=== PATIENT | male | born 1955 | race Caucasian/White ===

== ENCOUNTER 2018-05-16 00:39 | Inpatient (IN) ==
[2018-05-16] MEDS ORDERED: Temazepam 15 MG Capsule PO PRN (02:33)
[2018-05-16] MEDS ORDERED: Acetaminophen 325 MG Tablet PO PRN (02:33)
[2018-05-16] MEDS ORDERED: Bisacodyl 10 MG Supp RECTAL PRN (02:33)
[2018-05-16] MEDS ORDERED: Morphine Inj 4 MG/ML Vial IV.PUSH PRN (02:35)
[2018-05-16] MEDS ORDERED: Sod Chloride 0.9% Inj 1,000 ML IV.CONT SCH (02:45)
[2018-05-16 08:42] LABS: Baso % (Auto) 0.4 % (0.0-2.0); Eos # (Auto) 0.3 th/mm3 (0.0-0.4); Eos % (Auto) 4.6 % (0.0-4.0); Hematocrit 41.4 % (39.0-51.0); Hemoglobin 13.8 gm/dL (13.0-17.0); Lymph # (Auto) 1.6 th/mm3 (1.0-4.8); Lymph % (Auto) 21.7 % (9.0-44.0); Mean Corpuscular HGB Conc 33.4 % (32.0-36.0); Mean Corpuscular Hemoglobin 30.5 pg (27.0-34.0); Mean Corpuscular Volume 91.4 fL (80.0-100.0); Mean Platelet Volume 7.2 fL (7.0-11.0); Mono # (Auto) 0.6 th/mm3 (0.0-0.9); Mono % (Auto) 8.9 % (0.0-8.0); Neut # (Auto) 4.8 th/mm3 (1.8-7.7); Neut % (Auto) 64.4 % (16.0-70.0); Platelet Count 255 th/mm3 (150-450); Red Blood Count 4.53 mil/mm3 (4.50-5.90); Red Cell Distribution Width 11.9 % (11.6-17.2); White Blood Count 7.3 th/mm3 (4.0-11.0)
[2018-05-16 08:52] LABS: Chloride 107 meq/L (98-107); Potassium 4.6 meq/L (3.5-5.1); Sodium 139 meq/L (136-145)
[2018-05-16 08:56] LABS: Albumin 3.2 g/dL (3.4-5.0); Anion Gap 7 meq/L (5-15); Blood Urea Nitrogen 81 mg/dL (7-18); Carbon Dioxide 24.9 meq/L (21.0-32.0); Glucose,Random 122 mg/dL (74-106)
[2018-05-16 08:58] LABS: Alanine Aminotransferase 19 U/L (12-78)
[2018-05-16 08:59] LABS: Aspartate Aminotransferase 16 U/L (15-37); Glomerular Filtration Rate 7 mL/min (>89)
[2018-05-16 09:00] LABS: Total Protein 6.7 g/dL (6.4-8.2)
[2018-05-16 09:01] LABS: Alkaline Phosphatase 43 U/L (45-117)
[2018-05-16] MEDS: Piperacil/Tazo 2.25 GM Premix 50 ML IV.SIG SCH ×2 (09:38→15:58)
[2018-05-16] MEDS: Senna/Docusate Sodium 8.6/50 MG Tablet PO SCH (09:38)
[2018-05-16] MEDS ORDERED: Sod Chloride 0.9% Inj 1,000 ML IV.SIG ONE (09:47)
--- NOTE | 2018-05-16 09:59 | P.CONNP ---
<Loretta Zavala - Last Filed: 05/16/18 10:22> History of Present Illness Service: Nephrology Consult date: 05/16/18 Reason for Consult: Acute Renal Failure Primary Care Provider: ROZINA SIMMONS Chief Complaint: Back pain History of Present Illness: This is a 63 y/o male transferred from [facility] where he was admitted for back pain. The patient is in renal failure on admission with creatinine 8.3, BUN 80, K 5.1. His repeated labs do no show much improvement. I was able to call his PCP who reports in January his creatinine was 1, GFR 79. PMH includes HTN and hyperlipidemia. He was diagnosed with diverticulitis in the past week, has been on PO Cipro and Flagyl for 6 days. He is making urine, denies hematuria, hesitancy,or dribbling. The patient does report remote hx of "borderline" BPH, has not had to follow up with urology and has not been on any medications. On exam his bladder is not palpable. At the bedside, bladder scan revealing 390 ml, he voided 300 and post void scan showing 26 mls. He has taken a few NSAID tabs (Aleve and Advil)at home, but he reports less than 10 tabs in the past 2 weeks. He is also on lisinopril at home. Urinalysis here reveals RBCs and blood, no protein. He is afebrile without leukocytosis. We were consulted for renal management. On exam he is not in distress, and is a full code. He was given NS x 2 liters bolus and is on 100 ml/hr currently. He states he has felt "crappy" since but cannot articulate his complaints. Review of Systems All other systems reviewed negative except as stated in HPI Cardiovascular: Denies chest pain Respiratory: Denies shortness of breath Gastrointestinal: Reports abdominal pain, Reports constipation PMFSH - History History Provided By: Patient - Medical History Medical History: Medical History (Last Updated 05/16/18 @ 00:57 by Maxine Timmons RN) Diverticulitis - Tobacco History Second Hand Smoke Exposure: No Tobacco Use In Past 30 Days: No Smoking Status: Never smoker - Alcohol History How Often Do You Have a Drink Containing Alcohol: Never - Substance Use History Substance History: No History of Abuse - Travel History History of Recent Travel: No Recent Travel in the [place] Within the Last 8 Weeks: No Recent Travel Out of the Country Within the Last 8 Weeks: No Medications and Allergies Allergies Allergy/AdvReac Type Severity Reaction Status Date / Time prochlorperazine AdvReac Hallucinate Verified 05/16/18 00:54 [From Compazine] s Home Medications Medication Instructions Recorded Confirmed Type castor oil 1,300 mg MISCELLANEOUS DAILY 05/16/18 05/16/18 History ciprofloxacin HCl [Cipro] 500 mg PO Q12H 05/16/18 05/16/18 History gabapentin 600 mg PO TID 05/16/18 05/16/18 History lisinopril 20 mg PO DAILY 05/16/18 05/16/18 History lovastatin 40 mg PO DAILY 05/16/18 05/16/18 History metoprolol succinate 100 mg PO DAILY 05/16/18 05/16/18 History metronidazole [Flagyl] 500 mg PO TID 05/16/18 05/16/18 History polyethylene glycol 3350 [Miralax] 17 g PO DAILY 05/16/18 05/16/18 History rabeprazole [Aciphex] 20 mg PO DAILY 05/16/18 05/16/18 History tadalafil [Cialis] 2.5 mg PO DAILY 05/16/18 05/16/18 History Active Medications: Active Medications Acetaminophen (Tylenol) 650 mg PO Q4H PRN PRN Reason: Temp > 100.4 Al Hydroxide/Mg Hydroxide (Milk Of Magnesia Liq) 30 ml PO Q12H PRN PRN Reason: Mild Constipation Bisacodyl (Dulcolax Supp) 10 mg RECTAL DAILY PRN PRN Reason: SEVERE CONSITIPATION Piperacillin/Tazobactam/Dextrose (Zosyn 2.25 Gm Premix) 50 mls @ 100 mls/hr IV.SIG Q6H [facility] Last Admin: 05/16/18 09:38 Dose: 100 mls/hr Sodium Chloride (1/2 Normal Saline Inj) 1,000 mls @ 100 mls/hr IV.CONT .Q10H [facility] Lactulose (Lactulose Liq) 30 ml PO DAILY PRN PRN Reason: SEVERE CONSITIPATION Morphine Sulfate (Morphine Inj) 2 mg IV.PUSH Q4H PRN PRN Reason: PAIN 6-10 Ondansetron HCl (Zofran Inj) 4 mg IV.PUSH Q6H PRN PRN Reason: NAUSEA OR VOMITING Senna/Docusate Sodium (Yaa-Colace) 1 tab PO BID [facility] Last Admin: 05/16/18 09:38 Dose: 1 tab Sennosides (Senokot) 17.2 mg PO Q12H PRN PRN Reason: Moderate Constipation Temazepam (Restoril) 15 mg PO HS PRN PRN Reason: INSOMNIA Exam Vital signs: Vital Signs 05/16/18 04:00 05/16/18 08:00 Temperature 97.4 F L 96.3 F L Pulse Rate 63 54 L Respiratory Rate 18 20 Blood Pressure 165/88 H 177/63 H Pulse Oximetry 91 L 100 Intake & Output 05/15/18 05/16/18 05/16/18 18:59 06:59 18:59 Intake Total 200 / 200 Output Total 300 / 300 Balance 200 / 200 -300 / -300 Weight 108.8 kg Intake: Oral 200 / 200 Output: Urine 300 / 300 Other: # Voids 2 1 Date of Last Bowel Movement 05/14/18 Weight On Admission 108.8 kg - Constitutional no acute distress - Routine HEENT Exam Head: Present: normocephalic - Routine Neck Exam Present: supple, full ROM - Routine Respiratory Exam Present: CTA bilaterally. Absent: accessory muscle use - Routine Cardiovascular Exam Present: RRR, S1, S2 - Routine Abdominal Exam Present: soft, normoactive bowel sounds. Absent: tenderness, distended, guarding - Routine Extremities Exam Present: full ROM. Absent: edema - Routine Skin Exam Present: intact, warm - Routine Neurological Exam Present: alert, oriented X3 Results - Lab Results 05/16/18 08:35 05/16/18 08:35 Most recent lab results Calcium 8.0 mg/dL (8.5-10.1) L 05/16/18 08:35 - Image Kidney/bladder ultrasound: pending Assessment and Plan - Assessment (1) Acute renal failure Code(s): N17.9 - Acute kidney failure, unspecified Status: Acute Plan: Etiology is unclear. In January his creatinine was 1. DAVID may be due to allergic interstitial nephritis given recent antibiotic use. Bladder scan not suggesting obstruction. Renal US ordered to evaluate prostate. Repeat labs minimal improvement. Obtain CPK. Reduce IVF to 50 cc/hr. Monitor urine output. Avoid nephrotoxic agents. he was given Toradol on admission. Repeat labs daily. If no improvement, he may need dialysis support. Renal biopsy may also be required. Due to complexity of his case, would suggest transferring the patient to the main hospital. (2) HTN (hypertension) Code(s): I10 - Essential (primary) hypertension Status: Acute Plan: Resume home metoprolol. Hold NIXON inhibitor given renal failure. (3) Diverticulitis Code(s): K57.92 - Diverticulitis of intestine, part unspecified, without perforation or abscess without bleeding Status: Acute Plan: Was on PO Cipro and Flagyl. Ordered IV Zosyn here. Monitor symptom improvement. Imaging reviewed. <Scott Horne - Last Filed: 05/16/18 14:37> History of Present Illness Primary Care Provider: [facility] - Medical History Medical History: Medical History (Last Updated 05/16/18 @ 00:57 by Maxine Timmons RN) Diverticulitis Medications and Allergies Active Medications: Active Medications Acetaminophen (Tylenol) 650 mg PO Q4H PRN PRN Reason: Temp > 100.4 Al Hydroxide/Mg Hydroxide (Milk Of Magnesia Liq) 30 ml PO Q12H PRN PRN Reason: Mild Constipation Bisacodyl (Dulcolax Supp) 10 mg RECTAL DAILY PRN PRN Reason: SEVERE CONSITIPATION Piperacillin/Tazobactam/Dextrose (Zosyn 2.25 Gm Premix) 50 mls @ 100 mls/hr IV.SIG Q6H [facility] Last Infusion: 05/16/18 10:08 Dose: Infused Sodium Chloride (1/2 Normal Saline Inj) 1,000 mls @ 100 mls/hr IV.CONT .Q10H [facility] Last Admin: 05/16/18 13:54 Dose: 100 mls/hr Lactulose (Lactulose Liq) 30 ml PO DAILY PRN PRN Reason: SEVERE CONSITIPATION Morphine Sulfate (Morphine Inj) 2 mg IV.PUSH Q4H PRN PRN Reason: PAIN 6-10 Ondansetron HCl (Zofran Inj) 4 mg IV.PUSH Q6H PRN PRN Reason: NAUSEA OR VOMITING Senna/Docusate Sodium (Yaa-Colace) 1 tab PO BID [facility] Last Admin: 05/16/18 09:38 Dose: 1 tab Sennosides (Senokot) 17.2 mg PO Q12H PRN PRN Reason: Moderate Constipation Temazepam (Restoril) 15 mg PO HS PRN PRN Reason: INSOMNIA Exam Vital signs: Vital Signs 05/16/18 04:00 05/16/18 08:00 05/16/18 12:00 Temperature 97.4 F L 96.3 F L 96.2 F L Pulse Rate 63 54 L 55 L Respiratory Rate 18 20 20 Blood Pressure 165/88 H 177/63 H 137/75 Pulse Oximetry 91 L 100 100 Intake & Output 05/15/18 05/16/18 05/16/18 18:59 06:59 18:59 Intake Total 200 / 200 50 / 50 Output Total 500 / 500 Balance 200 / 200 -450 / -450 Weight 108.8 kg Intake: IV 50 / 50 Zosyn 2.25 GM Premix 50 ML @ 50 / 50 100 mls/hr IV.SIG Q6H [facility] Rx#: [id number] Oral 200 / 200 Output: Urine 500 / 500 Other: # Voids 2 1 Date of Last Bowel Movement 05/14/18 Weight On Admission 108.8 kg Results - Lab Results 05/16/18 08:35 05/16/18 08:35 Most recent lab results Calcium 8.0 mg/dL (8.5-10.1) L 05/16/18 08:35 Assessment and Plan - Assessment (1) Acute renal failure Code(s): N17.9 - Acute kidney failure, unspecified Status: Acute (2) HTN (hypertension) Code(s): I10 - Essential (primary) hypertension Status: Acute (3) Diverticulitis Code(s): K57.92 - Diverticulitis of intestine, part unspecified, without perforation or abscess without bleeding Status: Acute - Attending Attestation patient was seen and examined. Agree with above assessment and plan. He has hematuria. Rule out nephrolithiasis or other causes of obstruction. I will order CT of abdomen/pelvis, stone protocol. <Loretta Zavala - Last Filed: 05/16/18 10:22> (1) Acute renal failure Qualifiers: Acute renal failure type: unspecified Qualified Code(s): N17.9 - Acute kidney failure, unspecified <Scott Horne - Last Filed: 05/16/18 14:37> (1) Acute renal failure Qualifiers: Acute renal failure type: unspecified Qualified Code(s): N17.9 - Acute kidney failure, unspecified
[2018-05-16 10:42] LABS: Creatine Kinase MB 3.1 ng/mL (0.5-3.6)
--- NOTE | 2018-05-16 13:22 | P.HP ---
History of Present Illness Primary Care Physician: ROZINA SIMMONS Chief Complaint: Back pain History of Present Illness: 63-year-old male with known history of hypertension, hyperlipidemia, recurrent diverticulitis, erectile dysfunction who presented the hospital because of right-sided flank pain. Patient states that he has been going outpatient management for diverticulitis by his biomedical doctor for approximately 1 week. He states he started developing worsening back pain and flank pain in which he talked 1 of his friends and they thought that it might be related to a kidney stone so he came to the emergency department for evaluation. Patient had workup done and found to have acute renal failure with creatinine 8.3. Patient is still making urine. Potassium was normal. No abnormalities in electrolytes. CT scan was done of the abdomen did not indicate any obstructive uropathy. Does indicate a left kidney 4 cm cyst. No etiology for the patient's acute renal failure. He has been on recent antibiotics include Cipro, Flagyl for diverticulitis. Patient states that he has never had any problems with his kidneys before. He states that the only thing new that he is using last 2 weeks is a new [id number] medication that was being promoted by Dr. Beckham and Clarence Patricia for erectile dysfunction. 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 Denies any urinary symptoms. He has had flank pain. Denies any edema, shortness of breath, dyspnea, chest pain. - Diagnosis (1) Acute renal failure Inpatient Certification: I certify that the inpatient services were ordered in accordance with Medicare regulations governing the order. This includes certification that hospital inpatient services are reasonable and necessary and in the case of services not specified as inpatient-only under 42 CFR 419.22(n), that they are appropriately provided as inpatient services in accordance to with the 2-midnight benchmark under 43 CFR 412.3(e) Estimated Total Length of Stay (Days): 2 Plans for Post Hospital Care: Not yet determined Review of Systems All other systems reviewed negative except as stated in HPI Gastrointestinal: Reports abdominal pain PMFSH - History History Provided By: Patient - Medical History Medical History: Medical History (Last Updated 05/16/18 @ 13:29 by BHAVANA Salgado) Enlarged prostate Erectile dysfunction Hyperlipidemia Hypertension Diverticulitis - Surgical History Surgical History: Surgical History (Last Updated 05/16/18 @ 13:29 by BHAVANA Salgado) History of appendectomy History of back surgery History of shoulder surgery Status post wrist surgery - Family History Family History: Family History (Last Updated 05/16/18 @ 13:30 by BHAVANA Salgado) Father History of tuberculosis Mother No pertinent past medical history - Tobacco History Second Hand Smoke Exposure: No Tobacco Use In Past 30 Days: No Smoking Status: Never smoker - Alcohol History How Often Do You Have a Drink Containing Alcohol: Never - Substance Use History Substance History: No History of Abuse - Travel History History of Recent Travel: No Recent Travel in the [place] Within the Last 8 Weeks: No Recent Travel Out of the Country Within the Last 8 Weeks: No Medications and Allergies Active Medications: Active Medications Acetaminophen (Tylenol) 650 mg PO Q4H PRN PRN Reason: Temp > 100.4 Al Hydroxide/Mg Hydroxide (Milk Of Magnesia Liq) 30 ml PO Q12H PRN PRN Reason: Mild Constipation Bisacodyl (Dulcolax Supp) 10 mg RECTAL DAILY PRN PRN Reason: SEVERE CONSITIPATION Piperacillin/Tazobactam/Dextrose (Zosyn 2.25 Gm Premix) 50 mls @ 100 mls/hr IV.SIG Q6H [facility] Last Infusion: 05/16/18 10:08 Dose: Infused Sodium Chloride (1/2 Normal Saline Inj) 1,000 mls @ 100 mls/hr IV.CONT .Q10H [facility] Lactulose (Lactulose Liq) 30 ml PO DAILY PRN PRN Reason: SEVERE CONSITIPATION Morphine Sulfate (Morphine Inj) 2 mg IV.PUSH Q4H PRN PRN Reason: PAIN 6-10 Ondansetron HCl (Zofran Inj) 4 mg IV.PUSH Q6H PRN PRN Reason: NAUSEA OR VOMITING Senna/Docusate Sodium (Yaa-Colace) 1 tab PO BID [facility] Last Admin: 05/16/18 09:38 Dose: 1 tab Sennosides (Senokot) 17.2 mg PO Q12H PRN PRN Reason: Moderate Constipation Temazepam (Restoril) 15 mg PO HS PRN PRN Reason: INSOMNIA Allergies Allergy/AdvReac Type Severity Reaction Status Date / Time prochlorperazine AdvReac Hallucinate Verified 05/16/18 00:54 [From Compazine] s Home Medications Medication Instructions Recorded Confirmed Type castor oil 1,300 mg MISCELLANEOUS DAILY 05/16/18 05/16/18 History ciprofloxacin HCl [Cipro] 500 mg PO Q12H 05/16/18 05/16/18 History gabapentin 600 mg PO TID 05/16/18 05/16/18 History lisinopril 20 mg PO DAILY 05/16/18 05/16/18 History lovastatin 40 mg PO DAILY 05/16/18 05/16/18 History metoprolol succinate 100 mg PO DAILY 05/16/18 05/16/18 History metronidazole [Flagyl] 500 mg PO TID 05/16/18 05/16/18 History polyethylene glycol 3350 [Miralax] 17 g PO DAILY 05/16/18 05/16/18 History rabeprazole [Aciphex] 20 mg PO DAILY 05/16/18 05/16/18 History tadalafil [Cialis] 2.5 mg PO DAILY 05/16/18 05/16/18 History Exam Vital signs: Vital Signs 05/16/18 04:00 05/16/18 08:00 05/16/18 12:00 Temperature 97.4 F L 96.3 F L 96.2 F L Pulse Rate 63 54 L 55 L Respiratory Rate 18 20 20 Blood Pressure 165/88 H 177/63 H 137/75 Pulse Oximetry 91 L 100 100 Intake & Output 05/15/18 05/16/18 05/16/18 18:59 06:59 18:59 Intake Total 200 / 200 50 / 50 Output Total 300 / 300 Balance 200 / 200 -250 / -250 Weight 108.8 kg Intake: IV 50 / 50 Zosyn 2.25 GM Premix 50 ML @ 50 / 50 100 mls/hr IV.SIG Q6H [facility] Rx#: [id number] Oral 200 / 200 Output: Urine 300 / 300 Other: # Voids 2 1 Date of Last Bowel Movement 05/14/18 Weight On Admission 108.8 kg Narrative: GENERAL: Well-developed, well-nourished, in no acute distress. alert and orientated HEENT: Head is normocephalic without any lesions or masses noted. Facial features are symmetric. Eyes: Pupils equal round reactive to light. Extraocular muscles are intact. Conjunctivae were clear. Oropharyngeal: Pharynx without any erythema edema. Tongue is midline without deviation. Buccal mucosa is moist without any masses or lesions NECK: Supple without any masses. Trachea midline no deviation. No JVD, no bruits are appreciated CARDIAC: Regular rhythm, regular rate. S1/S2 are heard. No murmurs gallops or rubs. LUNGS: Clear to auscultation bilaterally. No wheeze, rhonchi or rales. No use of accessory muscles on inspiration or expiration. ABDOMEN: Soft, nontender. Nondistended. Bowel sounds heard in all 4 quadrants. No organomegaly or masses. Negative rebound, negative guarding EXTREMITIES: No edema, pulses are equal bilaterally. No cyanosis or clubbing NEUROLOGY: Mood and affect appear appropriate. Cranial nerves II through XII grossly intact. Muscle strength 5/5 in upper and lower extremities bilaterally. Deep tendon reflexes are 2+ in upper and lower extremities bilaterally. Results - Labs CBC & Chem 7: 05/16/18 08:35 05/16/18 08:35 Labs: Laboratory Results - last 24 hr 05/16/1818 05/16/18 08:35 08:35 08:35 CBC w Diff Auto diff final WBC 7.3 RBC 4.53 Hgb 13.8 Hct 41.4 MCV 91.4 D MCH 30.5 MCHC 33.4 RDW 11.9 Plt Count 255 MPV 7.2 Neut % (Auto) 64.4 Lymph % (Auto) 21.7 Cowley % (Auto) 8.9 H Eos % (Auto) 4.6 H Baso % (Auto) 0.4 Neut # (Auto) 4.8 Lymph # (Auto) 1.6 Cowley # (Auto) 0.6 Eos # (Auto) 0.3 Baso # (Auto) 0.0 WBC Differential . Differential Comment . Sodium 139 Potassium 4.6 Chloride 107 Carbon Dioxide 24.9 Anion Gap 7 BUN 81 H Creatinine 8.10 H Estimated GFR 7 L Random Glucose 122 H Calcium 8.0 L Total Bilirubin 0.4 AST 16 ALT 19 Alkaline Phosphatase 43 L Total Creatine Kinase 311 H CK-MB (CK-2) 3.1 CK-MB (CK-2) % 1.0 Total Protein 6.7 D Albumin 3.2 L Caprini VTE Risk Assessment Caprini VTE Risk Assessment: Moderate/High Risk (score >= 2) Caprini Risk Assessment Model: Point Value = 1 Point Value = 2 Point Value = 3 Point Value = 5 Age 41-60 Minor surgery BMI > 25 kg/m2 Swollen legs Varicose veins or History of unexplained or recurrent spontaneous Oral contraceptives or hormone replacement Sepsis (< 1 month) Serious lung disease, including pneumonia (< 1 month) Abnormal pulmonary function Acute myocardial infarction Congestive heart failure (< 1 month) History of inflammatory bowel disease Medical patient at bed rest Age 61-74 Arthroscopic surgery Major open surgery (> 45 min) Laparoscopic surgery (> 45 min) Malignancy Confined to bed (> 72 hours) Immobilizing plaster cast Central venous access Age >= 75 History of VTE Family history of VTE Factor V Leiden Prothrombin [id number] Lupus anticoagulant Anticardiolipin antibodies Elevated serum homocysteine Heparin-induced thrombocytopenia Other congenital or acquired thrombophilia Stroke (< 1 month) Elective arthroplasty Hip, pelvis, or leg fracture Acute spinal cord injury (< 1 month) Prophylaxis Regimen: Total Risk Factor Score Risk Level Prophylaxis Regimen 0-1 Low Early ambulation 2 Moderate Order ONE of the following: *Sequential Compression Device (SCD) *Heparin 5000 units SQ BID 3-4 Higher Order ONE of the following medications: *Heparin 5000 units SQ TID *Enoxaparin/Lovenox 40 mg SQ daily (WT < 150 kg, CrCl > 30 mL/min) *Enoxaparin/Lovenox 30 mg SQ daily (WT < 150 kg, CrCl > 10-29 mL/min) *Enoxaparin/Lovenox 30 mg SQ BID (WT < 150 kg, CrCl > 30 mL/min) AND/OR *Sequential Compression Device (SCD) 5 or more Highest Order ONE of the following medications: *Heparin 5000 units SQ TID (Preferred with Epidurals) *Enoxaparin/Lovenox 40 mg SQ daily (WT < 150 kg, CrCl > 30 mL/min) *Enoxaparin/Lovenox 30 mg SQ daily (WT < 150 kg, CrCl > 10-29 mL/min) *Enoxaparin/Lovenox 30 mg SQ BID (WT < 150 kg, CrCl > 30 mL/min) AND *Sequential Compression Device (SCD) Assessment and Plan - Assessment (1) Acute renal failure Code(s): N17.9 - Acute kidney failure, unspecified Status: Acute Plan: -Etiology unclear at this time for the acute renal failure. Fortunately patient is still making urine. No electrolyte abnormalities. No hyperkalemia. Could be secondary to medication, possible related to the recent erectile dysfunction supplement that he just started couple weeks ago. -CT scan does indicates a 4 cm cyst in the left kidney, however no other acute etiology -Patient continued on IV fluids without any significant improvement of his renal function -Nephrology consulted and made recommendations. They are indicating the patient will likely require a renal biopsy and possible hemodialysis. They requested that the patient be transferred to the main hospital for closer monitoring and procedures. -Awaiting renal bladder ultrasound -Further testing performed to include sed rate, C-reactive protein, STARLA, RA, C3 , C4, anti-ds, A1c, hepatitis panel, HIV, protein electrophoresis, 24-hour urine for protein, sodium, creatinine. - Plan DVT prevention -Sequential compression devices -Avoid chemical prophylaxis secondary to possible need for biopsy (1) Acute renal failure Qualifiers: Acute renal failure type: unspecified Qualified Code(s): N17.9 - Acute kidney failure, unspecified
[2018-05-16] MEDS: Sodium Chloride 0.45 % Inj 1,000 ML IV.CONT SCH (13:54)
--- NOTE | 2018-05-16 15:50 | US ---
EXAM DATE: 05/16/2018 10:44 AM EDT AGE/SEX: 63 years / Male INDICATIONS: Increased BUN/Creatinine. Left flank pain. CLINICAL DATA: This is the patient's initial encounter. Patient reports that signs and symptoms have been present for 2 days and indicates a pain score of 3/10. MEDICAL/SURGICAL HISTORY: Diverticulitis. Atherosclerosis. Left renal cyst. None. COMPARISON: [facility], CT ABDOMEN & PELVIS W/O CONTRAST, 05/16/2018. . MEASUREMENTS: Right Kidney:__14.2 x 6.4 x 6.7 cm Left Kidney:__14.2 x 6.4 x 6.7 cm FINDINGS: Right Kidney: Normal echotexture and cortical thickness. No mass or hydronephrosis. Left Kidney: 3.3 cm cyst lower pole left kidney. No hydronephrosis. Bladder: Decompressed. Not well evaluated. Other: None. CONCLUSION: 1. No acute findings. No hydronephrosis. 3.3 cm left renal cyst. Electronically signed by: George Jerez MD 05/16/2018 10:54 AM EDT
[2018-05-16 19:33] LABS: Hemoglobin A1c 5.5 % (4.3-6.0)
[2018-05-16 22:23] LABS: Hepatitits B Surface Antigen Nonreactive (Nonreactive)
[2018-05-16 22:59] LABS: Hepatitis A IgM Antibody Nonreactive (Nonreactive)
[2018-05-17] MEDS: Piperacil/Tazo 2.25 GM Premix 50 ML IV.SIG SCH ×5 (03:08→20:26)
[2018-05-17 06:40] LABS: Baso % (Auto) 0.3 % (0.0-2.0); Eos # (Auto) 0.3 th/mm3 (0.0-0.4); Eos % (Auto) 4.3 % (0.0-4.0); Hematocrit 38.9 % (39.0-51.0); Hemoglobin 13.4 gm/dL (13.0-17.0); Lymph # (Auto) 1.1 th/mm3 (1.0-4.8); Lymph % (Auto) 14.2 % (9.0-44.0); Mean Corpuscular HGB Conc 34.5 % (32.0-36.0); Mean Corpuscular Hemoglobin 30.6 pg (27.0-34.0); Mean Corpuscular Volume 88.7 fL (80.0-100.0); Mean Platelet Volume 7.6 fL (7.0-11.0); Mono # (Auto) 0.8 th/mm3 (0.0-0.9); Mono % (Auto) 9.8 % (0.0-8.0); Neut # (Auto) 5.6 th/mm3 (1.8-7.7); Neut % (Auto) 71.4 % (16.0-70.0); Platelet Count 253 th/mm3 (150-450); Red Blood Count 4.39 mil/mm3 (4.50-5.90); White Blood Count 7.8 th/mm3 (4.0-11.0)
[2018-05-17] MEDS: Sodium Chloride 0.45 % Inj 1,000 ML IV.CONT SCH ×2 (07:00→08:15)
[2018-05-17 07:03] LABS: C-Reactive Protein 0.85 mg/dL (0.00-0.30); Calcium 8.2 mg/dL (8.5-10.1); Carbon Dioxide 22.1 meq/L (21.0-32.0); Potassium 5.4 meq/L (3.5-5.1)
[2018-05-17] MEDS: Senna/Docusate Sodium 8.6/50 MG Tablet PO SCH ×3 (09:58→20:26)
--- NOTE | 2018-05-17 12:21 | P.PNNP ---
Subjective Interval history: He was transferred to [facility]. Renal function is slightly better. Non oliguric. <SallyLoretta dunneCarlos - Last Filed: 05/17/18 12:17> Physical Exam Vital signs: Vital Signs 05/16/18 15:08 05/16/18 19:35 05/16/18 23:00 Temperature 97.4 F L 97.9 F 97.3 F L Pulse Rate 50 L 56 L 56 L Respiratory Rate 18 18 18 Blood Pressure 163/77 H 123/61 165/78 H Pulse Oximetry 100 96 98 05/17/18 05:00 05/17/18 05:24 05/17/18 08:00 Temperature 97.9 F 97.7 F Pulse Rate 66 62 Respiratory Rate 18 Blood Pressure 158/79 H 160/81 H Pulse Oximetry 97 100 Intake & Output 05/16/18 05/17/18 05/17/18 18:59 06:59 18:59 Intake Total 220 / 220 1580 / 1580 Output Total 500 / 500 600 / 600 Balance -280 / -280 1580 / 1580 -600 / -600 Weight 108.8 kg Intake: IV 100 / 100 1100 / 1100 1/2 Normal Saline Inj 1,000 ML 1000 / 1000 @ 100 mls/hr IV.CONT .Q10H [facility]AN Rx#:[id number] Zosyn 2.25 GM Premix 50 ML @ 100 / 100 100 / 100 100 mls/hr IV.SIG Q6H STEFAN Rx#: [id number] Oral 120 / 120 480 / 480 Output: Urine 500 / 500 600 / 600 Other: # Voids 1 6 Date of Last Bowel Movement 05/14/18 05/14/18 05/14/18 # Bowel Movements 0 - Constitutional no acute distress, average body habitus, cooperative - Routine HEENT Exam Head: Present: normocephalic - Routine Neck Exam Present: supple, full ROM - Routine Respiratory Exam Present: CTA bilaterally. Absent: accessory muscle use - Routine Cardiovascular Exam Present: RRR, S1, S2 - Routine Abdominal Exam Present: soft, normoactive bowel sounds - Routine Extremities Exam Present: full ROM, pulses intact. Absent: edema - Routine Skin Exam Present: intact, warm - Routine Neurological Exam Present: alert, oriented X3, CN II-XII intact - Detailed Neurological Exam: Coma Scale Eye Opening: Spontaneous Verbal Response: Oriented Motor Response: Obey commands Karin Coma Scale Total: 15 - Routine Psychiatric Exam Present: normal affect, normal thought process <Loretta Zavala - Last Filed: 05/17/18 12:17> Vital signs: Vital Signs 05/16/18 23:00 05/17/18 05:00 05/17/18 05:24 Temperature 97.3 F L 97.9 F Pulse Rate 56 L 66 Respiratory Rate 18 15 18 Blood Pressure 165/78 H 158/79 H Pulse Oximetry 98 97 05/17/18 08:00 05/17/18 12:00 05/17/18 16:00 Temperature 97.7 F 98.3 F 98.3 F Pulse Rate 62 68 66 Respiratory Rate 18 18 18 Blood Pressure 160/81 H 156/85 H 148/74 H Pulse Oximetry 100 99 99 05/17/18 20:19 Temperature 97.9 F Pulse Rate 73 Respiratory Rate 18 Blood Pressure 165/82 H Pulse Oximetry 99 Intake & Output 05/17/18 05/17/18 05/18/18 06:59 18:59 06:59 Intake Total 1580 / 1580 1010 / 1010 Output Total 600 / 600 Balance 1580 / 1580 410 / 410 Weight 108.8 kg Intake: IV 1100 / 1100 50 / 50 1/2 Normal Saline Inj 1,000 ML 1000 / 1000 @ 100 mls/hr IV.CONT .Q10H [facility] Rx#:[id number] Zosyn 2.25 GM Premix 50 ML @ 100 / 100 50 / 50 100 mls/hr IV.SIG Q6H [facility]EFAN Rx#: [id number] Oral 480 / 480 960 / 960 Output: Urine 600 / 600 Other: # Voids 6 Date of Last Bowel Movement 05/14/18 05/14/18 # Bowel Movements 0 1 <Scott Horne - Last Filed: 05/17/18 21:45> Assessment and Plan - Assessment (1) Acute renal failure Code(s): N17.9 - Acute kidney failure, unspecified Status: Inactive Qualifiers: Acute renal failure type: unspecified Qualified Code(s): N17.9 - Acute kidney failure, unspecified Plan: Etiology is unclear. In January his creatinine was 1. Differential include AIN due to recent antibiotic use or possibly ATN due to dehydration. Small improvement is seen overnight. He is non oliguric. Change IVF to D5W with 75mEq NaHCO3 @ 50 cc/hr Diet changed to low potassium. Avoid nephrotoxic agents. he was given Toradol on admission. Repeat labs daily. He does not require dialysis at this time. We will monitor for changes. (2) HTN (hypertension) Code(s): I10 - Essential (primary) hypertension Status: Acute Plan: Start amlodipine. Hold NIXON inhibitor given renal failure. Hold home metoprolol due to bradycardia. (3) Diverticulitis Code(s): K57.92 - Diverticulitis of intestine, part unspecified, without perforation or abscess without bleeding Status: Acute Plan: Was on PO Cipro and Flagyl. Ordered IV Zosyn here. Monitor symptom improvement. Imaging reviewed. <Loretta Zavala - Last Filed: 05/17/18 12:17> - Assessment (1) Acute renal failure Code(s): N17.9 - Acute kidney failure, unspecified Status: Inactive Qualifiers: Acute renal failure type: unspecified Qualified Code(s): N17.9 - Acute kidney failure, unspecified (2) HTN (hypertension) Code(s): I10 - Essential (primary) hypertension Status: Acute (3) Diverticulitis Code(s): K57.92 - Diverticulitis of intestine, part unspecified, without perforation or abscess without bleeding Status: Acute - Attending Attestation patient was seen and examined. Some improvement in creatinine. Continue to monitor. No immediate need for dialysis. Mild hyperkalemia is noted, added bicarbonate to IVF. <Scott Horne - Last Filed: 05/17/18 21:45>
--- NOTE | 2018-05-17 12:33 | P.PN ---
Subjective Interval history: Follow-up for ARF. Patient is seen and examined sitting up in bed in no acute distress. He tells me the story of how he ended up in the hospital and tells me that he recently began taking an array of supplements OTC. He followed up with his PCP as well and was told that he may be starting to develop possible diverticulitis. He tells me he has had this before and was given "emergency" medicine for this infection and recently started this. He thinks that taking lots of medications could have possibly been the cause of his renal issues. 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 At the current time he denies any fevers, chills, N/V/D, cough, SOB, or abdominal pain. He does endorse acid reflux, but is reluctant to taking any antireflux medications as be believes this could also affect his kidneys. He is also complaining of gas and would like something for this discomfort. He voices no other acute concerns at this moment. Physical Exam Vital signs: Vital Signs 05/16/18 15:08 05/16/18 19:35 05/16/18 23:00 Temperature 36.3 C L 36.6 C 36.3 C L Pulse Rate 50 L 56 L 56 L Respiratory Rate 18 18 18 Blood Pressure 163/77 H 123/61 165/78 H Pulse Oximetry 100 96 98 05/17/18 05:00 05/17/18 05:24 05/17/18 08:00 Temperature 36.6 C 36.5 C Pulse Rate 66 62 Respiratory Rate 15 18 18 Blood Pressure 158/79 H 160/81 H Pulse Oximetry 97 100 Intake & Output 05/16/18 05/17/18 05/17/18 18:59 06:59 18:59 Intake Total 220 / 220 1580 / 1580 Output Total 500 / 500 600 / 600 Balance -280 / -280 1580 / 1580 -600 / -600 Weight 108.8 kg Intake: IV 100 / 100 1100 / 1100 1/2 Normal Saline Inj 1,000 ML 1000 / 1000 @ 100 mls/hr IV.CONT .Q10H [facility]EF[facility] Rx#:[id number] Zosyn 2.25 GM Premix 50 ML @ 100 / 100 100 / 100 100 mls/hr IV.SIG Q6H STEFAN Rx#: [id number] Oral 120 / 120 480 / 480 Output: Urine 500 / 500 600 / 600 Other: # Voids 1 6 Date of Last Bowel Movement 05/14/18 05/14/18 05/14/18 # Bowel Movements 0 Narrative: GENERAL: Well nourished, well developed male in no acute distress. SKIN: Warm and dry. HEAD: Atraumatic. Normocephalic. EYES: Pupils equal and round. No scleral icterus. No injection or drainage. ENT: No nasal bleeding or discharge. Mucous membranes pink and moist. NECK: Trachea midline. CARDIOVASCULAR: Regular rate and rhythm. RESPIRATORY: No accessory muscle use. Clear to auscultation. Breath sounds equal bilaterally. GASTROINTESTINAL: Abdomen soft, non-tender, nondistended. + bowel sounds. MUSCULOSKELETAL: Extremities without clubbing, cyanosis, or edema. No obvious deformities. NEUROLOGICAL: Awake and alert. No obvious cranial nerve deficits. Motor grossly within normal limits. Normal speech. PSYCHIATRIC: Appropriate mood and affect; insight and judgment normal. Results - Labs CBC & Chem 7: 05/17/18 04:42 05/18/18 11:11 Laboratory Results - last 24 hr 05/16/18 05/16/18 05/16/18 08:35 08:35 08:35 WBC RBC Hgb Hct MCV MCH MCHC RDW Plt Count MPV Neut % (Auto) Lymph % (Auto) Cavalier % (Auto) Eos % (Auto) Baso % (Auto) Neut # (Auto) Lymph # (Auto) Cavalier # (Auto) Eos # (Auto) Baso # (Auto) WBC Differential Differential Comment ESR 31 H Sodium Potassium Chloride Carbon Dioxide Anion Gap BUN Creatinine Estimated GFR Random Glucose Hemoglobin A1c 5.5 Calcium C-Reactive Protein Total Protein (PEP) Complement C3 Complement C4 Hepatitis A IgM Ab Nonreactive Hep Bs Antigen Nonreactive Hep B Core IgM Ab Nonreactive Hep C IgG Ab Nonreactive HIV 1&2 Ab/P24 Ag 4thGn Nonreactive 05/17/18 05/17/18 04:42 04:42 WBC 7.8 RBC 4.39 L Hgb 13.4 Hct 38.9 L MCV 88.7 MCH 30.6 MCHC 34.5 RDW 13.0 Plt Count 253 MPV 7.6 Neut % (Auto) 71.4 H Lymph % (Auto) 14.2 Cavalier % (Auto) 9.8 H Eos % (Auto) 4.3 H Baso % (Auto) 0.3 Neut # (Auto) 5.6 Lymph # (Auto) 1.1 Cavalier # (Auto) 0.8 Eos # (Auto) 0.3 Baso # (Auto) 0.0 WBC Differential . Differential Comment Auto diff final ESR Sodium 142 Potassium 5.4 H D Chloride 111 H Carbon Dioxide 22.1 Anion Gap 9 BUN 74 H Creatinine 7.41 H Estimated GFR 7 L Random Glucose 82 Hemoglobin A1c Calcium 8.2 L C-Reactive Protein 0.85 H Total Protein (PEP) 6.6 Complement C3 72 L Complement C4 18 Hepatitis A IgM Ab Hep Bs Antigen Hep B Core IgM Ab Hep C IgG Ab HIV 1&2 Ab/P24 Ag 4thGn - Imaging Impressions Abdomen/Bladder Ultrasound 05/16/18 00:00 CONCLUSION: 1. No acute findings. No hydronephrosis. 3.3 cm left renal cyst. Assessment and Plan - Assessment (1) Acute renal failure Code(s): N17.9 - Acute kidney failure, unspecified Status: Inactive Plan: -Etiology unclear at this time for the acute renal failure. Fortunately patient is still making urine. No electrolyte abnormalities. No hyperkalemia. Could be secondary to medication, possible related to the recent erectile dysfunction supplement that he just started couple weeks ago. -CT scan does indicates a 4 cm cyst in the left kidney, however no other acute etiology -Patient continued on IV fluids without any significant improvement of his renal function -Nephrology consulted and made recommendations. They are indicating the patient will likely require a renal biopsy and possible hemodialysis. They requested that the patient be transferred to the [facility] hospital for closer monitoring and procedures. -Awaiting renal bladder ultrasound -Further testing performed to include sed rate, C-reactive protein, STARLA, RA, C3 , C4, anti-ds, A1c, hepatitis panel, HIV, protein electrophoresis, 24-hour urine for protein, sodium, creatinine. - Plan 63-year-old male with PMH of HTN, HLD, ED, and recurrent diverticulitis with presented to hospital with right sided flank pane. Patient had reportedly recently started taking an OTC supplement for ED along with recent treatment for diverticulitis. Patient admitted due to ARF, transferred to [facility] for possible HD or renal biopsy. DAVID non-oliguric Unknown etiology ? OTC supplement -Nephrology following appreciate assistance - Kidney US with no acute findings, no hydronephrosis, 3.3cm left renal cyst. - Slight improvement in renal function, creatinine 8.1 --->7.41 -Mild hyperkalemia noted this am, IVF changed to D5W w/ 75mEq HaHCO3 @50ml/hr - Low K diet, continue monitoring electrolytes and renal function -HD on hold for now HTN - ACEI on hold due to DAVID, started on Norvasc - Continue to monitor BP and adjust medications accordingly Diverticulitis - Recurrent episodes with most recent one being treated with p.o Flagyl and Cipro - CT of abd/pelvis 05/16 noted diverticulosis with mild acute diverticulitis, left renal cyst, arthrosclerosis. - Continue IV Zosyn -Afebrile, gas complaints, will order PRN simethicone DVT prophylaxis-SCDs, ambulation. Discussed Condition With: Patient, RN, (1) Acute renal failure Qualifiers: Acute renal failure type: unspecified Qualified Code(s): N17.9 - Acute kidney failure, unspecified
[2018-05-17] MEDS: amLODIPine 5 MG Tablet PO SCH (12:50)
[2018-05-17] MEDS: Sodium Bicarbonate 8.4% Inj 75 MEQ in Dextrose 5% in Water Inj 925 ML IV.CONT SCH ×2 (13:15)
[2018-05-17] MEDS ORDERED: Simethicone 80 MG Chew Tablet PO PRN (13:32)
[2018-05-17 23:03] LABS: Creatinine 24 Hour,Urine 2.52 gm/24hr (0.63-2.50)
[2018-05-18] MEDS: Piperacil/Tazo 2.25 GM Premix 50 ML IV.SIG SCH ×4 (03:04→20:45)
[2018-05-18] MEDS: amLODIPine 5 MG Tablet PO SCH (09:30)
[2018-05-18] MEDS: Senna/Docusate Sodium 8.6/50 MG Tablet PO SCH ×2 (11:55→20:45)
[2018-05-18] MEDS: Sodium Bicarbonate 8.4% Inj 75 MEQ in Dextrose 5% in Water Inj 925 ML IV.CONT SCH ×2 (11:56)
--- NOTE | 2018-05-18 12:32 | P.PNNP ---
Subjective Interval history: He is ambulatory. Pending lab results from today. No new issues. <Loretta Zavala - Last Filed: 05/18/18 12:28> Physical Exam Vital signs: Vital Signs 05/17/18 16:00 05/17/18 20:19 05/18/18 00:00 Temperature 98.3 F 97.9 F 98.5 F Pulse Rate 66 73 75 Respiratory Rate 18 18 18 Blood Pressure 148/74 H 165/82 H 159/71 H Pulse Oximetry 99 99 98 05/18/18 08:00 Temperature 98.0 F Pulse Rate 88 Respiratory Rate 16 Blood Pressure 158/81 H Pulse Oximetry 97 Intake & Output 05/17/18 05/18/18 05/18/18 18:59 06:59 18:59 Intake Total 1010 / 1010 100 / 100 1000 / 1000 Output Total 600 / 600 Balance 410 / 410 100 / 100 1000 / 1000 Weight 110 kg Intake: IV 50 / 50 100 / 100 1000 / 1000 Sodium Bicarbonate 8.4% Inj 75 1000 / 1000 MEQ In D5W Inj 925 ML @ 50 mls/ hr IV.CONT .Q20H [facility]EFAN Rx#: [id number] Zosyn 2.25 GM Premix 50 ML @ 50 / 50 100 / 100 100 mls/hr IV.SIG Q6H STEFAN Rx#: [id number] Oral 960 / 960 Output: Urine 600 / 600 Other: Date of Last Bowel Movement 05/14/18 05/16/18 # Bowel Movements 1 - Constitutional no acute distress, average body habitus Comments: ambulatory - Routine HEENT Exam Head: Present: normocephalic - Routine Neck Exam Present: supple, full ROM - Routine Respiratory Exam Present: CTA bilaterally. Absent: accessory muscle use - Routine Cardiovascular Exam Present: RRR, S1, S2 - Routine Abdominal Exam Present: soft, normoactive bowel sounds. Absent: tenderness, guarding - Routine Extremities Exam Present: full ROM, pulses intact. Absent: edema - Routine Skin Exam Present: intact, dry, warm - Routine Neurological Exam Present: alert, oriented X3, CN II-XII intact - Detailed Neurological Exam: Coma Scale Eye Opening: Spontaneous Verbal Response: Oriented Motor Response: Obey commands Karin Coma Scale Total: 15 - Routine Psychiatric Exam Present: normal affect, normal thought process <Loretta Zavala - Last Filed: 05/18/18 12:28> Vital signs: Vital Signs 05/17/18 20:19 05/18/18 00:00 05/18/18 08:00 Temperature 97.9 F 98.5 F 98.0 F Pulse Rate 73 75 88 Respiratory Rate 18 18 16 Blood Pressure 165/82 H 159/71 H 158/81 H Pulse Oximetry 99 98 97 05/18/18 12:00 05/18/18 15:32 Temperature 98 F 98.1 F Pulse Rate 75 71 Respiratory Rate 22 20 Blood Pressure 167/77 H 159/86 H Pulse Oximetry 97 98 Intake & Output 05/17/18 05/18/18 05/18/18 18:59 06:59 18:59 Intake Total 1010 / 1010 100 / 100 1000 / 1000 Output Total 600 / 600 Balance 410 / 410 100 / 100 1000 / 1000 Weight 110 kg Intake: IV 50 / 50 100 / 100 1000 / 1000 Sodium Bicarbonate 8.4% Inj 75 1000 / 1000 MEQ In D5W Inj 925 ML @ 50 mls/ hr IV.CONT .Q20H STEFAN Rx#: [id number] Zosyn 2.25 GM Premix 50 ML @ 50 / 50 100 / 100 100 mls/hr IV.SIG Q6H STEFAN Rx#: [id number] Oral 960 / 960 Output: Urine 600 / 600 Other: Date of Last Bowel Movement 05/14/18 05/16/18 # Bowel Movements 1 <Scott Horne - Last Filed: 05/18/18 17:49> Assessment and Plan - Assessment (1) Acute renal failure Code(s): N17.9 - Acute kidney failure, unspecified Status: Inactive Qualifiers: Acute renal failure type: unspecified Qualified Code(s): N17.9 - Acute kidney failure, unspecified Plan: Etiology is unclear. In January his creatinine was 1. DAVID due to AIN from recent antibiotic use or possibly ATN due to dehydration. Pending repeat labs from today, he was improving. He is non oliguric. On Bicarb gtt, continue for now. PO fluids encouraged. Avoid nephrotoxic agents. He was given Toradol on admission. Repeat labs daily. (2) HTN (hypertension) Code(s): I10 - Essential (primary) hypertension Status: Acute Plan: On amlodipine. Hold NIXON inhibitor given renal failure. Hold home metoprolol due to bradycardia. BP is better. (3) Diverticulitis Code(s): K57.92 - Diverticulitis of intestine, part unspecified, without perforation or abscess without bleeding Status: Acute Plan: Was on PO Cipro and Flagyl. Ordered IV Zosyn here. Monitor symptom improvement. Imaging reviewed. <Loretta Zavala - Last Filed: 05/18/18 12:28> - Assessment (1) Acute renal failure Code(s): N17.9 - Acute kidney failure, unspecified Status: Inactive Qualifiers: Acute renal failure type: unspecified Qualified Code(s): N17.9 - Acute kidney failure, unspecified (2) HTN (hypertension) Code(s): I10 - Essential (primary) hypertension Status: Acute (3) Diverticulitis Code(s): K57.92 - Diverticulitis of intestine, part unspecified, without perforation or abscess without bleeding Status: Acute - Attending Attestation patient was seen and examined. Agree with above assessment and plan. Patient's renal function has improved. He can be discharged from renal standpoint. Discontinue IVF. <Scott Horne - Last Filed: 05/18/18 17:49>
[2018-05-18 12:41] LABS: Calcium 8.3 mg/dL (8.5-10.1); Phosphorus 4.2 mg/dL (2.5-4.9); Potassium 4.7 meq/L (3.5-5.1)
--- NOTE | 2018-05-18 12:52 | P.PN ---
Subjective Interval history: Follow-up visit for DAVID and HTN. Spoke with nurse who reports no events overnight or this morning. Patient is seen and examined in his room, he is requesting that I take a look at his medications that he has from home. He denies any abdominal pain or discomfort, last BM was today, denies any diarrhea or constipation. Denies any fevers, chills, nausea, headache, cough or SOB. He is urinating without dysuria. Physical Exam Vital signs: Vital Signs 05/17/18 16:00 05/17/18 20:19 05/18/18 00:00 Temperature 36.8 C 36.6 C 36.9 C Pulse Rate 66 73 75 Respiratory Rate 18 18 18 Blood Pressure 148/74 H 165/82 H 159/71 H Pulse Oximetry 99 99 98 05/18/18 08:00 05/18/18 12:00 Temperature 36.7 C 36.6 C Pulse Rate 88 75 Respiratory Rate 16 22 Blood Pressure 158/81 H 167/77 H Pulse Oximetry 97 97 Intake & Output 05/17/18 05/18/18 05/18/18 18:59 06:59 18:59 Intake Total 1010 / 1010 100 / 100 1000 / 1000 Output Total 600 / 600 Balance 410 / 410 100 / 100 1000 / 1000 Weight 110 kg Intake: IV 50 / 50 100 / 100 1000 / 1000 Sodium Bicarbonate 8.4% Inj 75 1000 / 1000 MEQ In D5W Inj 925 ML @ 50 mls/ hr IV.CONT .Q20H STEFAN Rx#: [id number] Zosyn 2.25 GM Premix 50 ML @ 50 / 50 100 / 100 100 mls/hr IV.SIG Q6H STEFAN Rx#: [id number] Oral 960 / 960 Output: Urine 600 / 600 Other: Date of Last Bowel Movement 05/14/18 05/16/18 # Bowel Movements 1 Narrative: GENERAL: Well nourished, well developed male in no acute distress. SKIN: Warm and dry. HEAD: Atraumatic. Normocephalic. EYES: Pupils equal and round. No scleral icterus. No injection or drainage. ENT: No nasal bleeding or discharge. Mucous membranes pink and moist. NECK: Trachea midline. CARDIOVASCULAR: Regular rate and rhythm. RESPIRATORY: No accessory muscle use. Clear to auscultation. Breath sounds equal bilaterally. GASTROINTESTINAL: Abdomen soft, non-tender, nondistended. + bowel sounds. MUSCULOSKELETAL: Extremities without clubbing, cyanosis, or edema. No obvious deformities. NEUROLOGICAL: Awake and alert. No obvious cranial nerve deficits. Motor grossly within normal limits. Normal speech. PSYCHIATRIC: Appropriate mood and affect; insight and judgment normal. Results - Labs CBC & Chem 7: 05/17/18 04:42 05/18/18 11:11 Laboratory Results - last 24 hr 05/17/18 05/18/18 19:00 11:11 Sodium 141 Potassium 4.7 Chloride 109 H Carbon Dioxide 24.0 Anion Gap 8 BUN 62 H Creatinine 5.93 H Estimated GFR 10 L Random Glucose 114 H Calcium 8.3 L Phosphorus 4.2 Albumin 3.0 L Ur 24 Hour Volume 3120 Ur Creatinine 24 Hour 2.52 H Ur Total Protein 24 Hr 262 H Ur Sodium 24 Hour 212 H Assessment and Plan - Assessment (1) Acute renal failure Code(s): N17.9 - Acute kidney failure, unspecified Status: Inactive Plan: -Etiology unclear at this time for the acute renal failure. Fortunately patient is still making urine. No electrolyte abnormalities. No hyperkalemia. Could be secondary to medication, possible related to the recent erectile dysfunction supplement that he just started couple weeks ago. -CT scan does indicates a 4 cm cyst in the left kidney, however no other acute etiology -Patient continued on IV fluids without any significant improvement of his renal function -Nephrology consulted and made recommendations. They are indicating the patient will likely require a renal biopsy and possible hemodialysis. They requested that the patient be transferred to the [facility] hospital for closer monitoring and procedures. -Awaiting renal bladder ultrasound -Further testing performed to include sed rate, C-reactive protein, STARLA, RA, C3 , C4, anti-ds, A1c, hepatitis panel, HIV, protein electrophoresis, 24-hour urine for protein, sodium, creatinine. - Plan 63-year-old male with PMH of HTN, HLD, ED, and recurrent diverticulitis with presented to hospital with right sided flank pane. Patient had reportedly recently started taking an OTC supplement for ED along with recent treatment for diverticulitis. Patient admitted due to ARF, transferred to [facility] for possible HD or renal biopsy. DAVID non-oliguric Unknown etiology ? OTC supplement -Nephrology following appreciate assistance - Kidney US with no acute findings, no hydronephrosis, 3.3cm left renal cyst. - Continues to improve, creatinine 8.1 --->7.41-->5.93 -Mild hyperkalemia now resolved, IVF changed to D5W w/ 75mEq HaHCO3 @50ml/hr - Continue low K diet, continue monitoring electrolytes and renal function -HD on hold for now HTN - ACEI on hold due to DAVID, started on Norvasc - BP still on the higher side, Norvasc increased to 10mg daily Diverticulitis - Recurrent episodes with most recent one being treated with p.o Flagyl and Cipro - CT of abd/pelvis 05/16 noted diverticulosis with mild acute diverticulitis, left renal cyst, arthrosclerosis. - Continue IV Zosyn -Afebrile, asymptomatic, PRN simethicone for gas complaints. DVT prophylaxis-SCDs, ambulation. Discussed Condition With: Discussed with patient and RN (1) Acute renal failure Qualifiers: Acute renal failure type: unspecified Qualified Code(s): N17.9 - Acute kidney failure, unspecified
[2018-05-19] MEDS: Piperacil/Tazo 2.25 GM Premix 50 ML IV.SIG SCH ×2 (03:31→08:14)
[2018-05-19 05:24] LABS: Calcium 8.8 mg/dL (8.5-10.1); Potassium 4.5 meq/L (3.5-5.1)
[2018-05-19] MEDS: amLODIPine 5 MG Tablet PO SCH (08:13)
[2018-05-19] MEDS: Senna/Docusate Sodium 8.6/50 MG Tablet PO SCH ×2 (08:14→20:59)
--- NOTE | 2018-05-19 10:48 | P.PNIM ---
Subjective Interval history: FU diverticulitis and renal failure. Patient denies any chest pain, states belly pain is improving. Admits to not drinking enough fluids at home, encouraged to improve this. He is asking for a sleeping pill tonight. Patient is very anxious and does not feel he can go home today. Physical Exam Vital signs: Vital Signs 05/18/18 12:00 05/18/18 15:32 05/18/18 20:00 Temperature 98 F 98.1 F 98.6 F Pulse Rate 75 71 77 Respiratory Rate 22 20 18 Blood Pressure 167/77 H 159/86 H 153/86 H Pulse Oximetry 97 98 98 05/19/18 00:00 05/19/18 08:00 Temperature 98.3 F 98.3 F Pulse Rate 88 92 H Respiratory Rate 20 16 Blood Pressure 172/84 H 167/86 H Pulse Oximetry 99 98 Intake & Output 05/18/18 05/19/18 05/19/18 18:59 06:59 18:59 Intake Total 1580 / 1580 100 / 100 Output Total 600 / 600 Balance 980 / 980 100 / 100 Weight 114 kg Intake: IV 1100 / 1100 100 / 100 Sodium Bicarbonate 8.4% Inj 75 1000 / 1000 MEQ In D5W Inj 925 ML @ 50 mls/ hr IV.CONT .Q20H [facility] Rx#: [id number] Zosyn 2.25 GM Premix 50 ML @ 100 / 100 100 / 100 100 mls/hr IV.SIG Q6H STEFAN Rx#: [id number] Oral 480 / 480 Output: Urine 600 / 600 Other: # Voids 4 Date of Last Bowel Movement 05/18/18 05/18/18 # Bowel Movements 1 4 Narrative: GENERAL: This is a well-nourished, well-developed patient, who is worried about going home. CARDIOVASCULAR: Regular rate and rhythm without murmurs, gallops, or rubs. RESPIRATORY: Clear to auscultation. Breath sounds equal bilaterally. No wheezes , rales, or rhonchi. GASTROINTESTINAL: Abdomen soft, minimally tender, nondistended. Normal active bowel sounds MUSCULOSKELETAL: Extremities without clubbing, cyanosis, or edema. NEURO: Alert & Oriented x4 to person, place, time, situation. Moves all ext x4 Results - Labs CBC & Chem 7: 05/17/18 04:42 05/19/18 04:31 Laboratory Results - last 24 hr 05/17/18 05/17/18 05/18/18 04:42 04:42 11:11 Sodium 141 Potassium 4.7 Chloride 109 H Carbon Dioxide 24.0 Anion Gap 8 BUN 62 H Creatinine 5.93 H Estimated GFR 10 L Random Glucose 114 H Calcium 8.3 L Phosphorus 4.2 Albumin 3.0 L Albumin (PEP) 4.06 Albumin/Globulin Ratio 1.60 Pyhyt-2-Ehryqmrmr 0.30 H Vkkgc-6-Xauduuxnk 0.72 Beta Globulins 0.59 Gamma Globulins 0.93 STARLA Screen Neg 05/19/18 04:31 Sodium 142 Potassium 4.5 Chloride 109 H Carbon Dioxide 22.0 Anion Gap 11 BUN 52 H Creatinine 5.16 H Estimated GFR 11 L Random Glucose 101 Calcium 8.8 Phosphorus Albumin Albumin (PEP) Albumin/Globulin Ratio Frdsr-3-Jmmgnpdun Opikl-8-Pmdhoqjzq Beta Globulins Gamma Globulins STARLA Screen Assessment and Plan - Plan 63-year-old male with PMH of HTN, HLD, ED, and recurrent diverticulitis with presented to hospital with right sided flank pane. Patient had reportedly recently started taking an OTC supplement for ED along with recent treatment for diverticulitis. Patient admitted due to ARF, transferred to [facility] for possible HD or renal biopsy. DAVID non-oliguric Unknown etiology ? OTC supplement -Nephrology has signed off, continue oral hydration - Kidney US with no acute findings, no hydronephrosis, 3.3cm left renal cyst. - Continues to improve, creatinine 8.1 --->7.41-->5.93-->5.13 -Recheck in AM -Mild hyperkalemia now resolved, IVF d/c -Continue low K diet, continue monitoring electrolytes and renal function -HD on hold for now -Encourage fluids HTN - ACEI on hold due to DAVID, started on Norvasc - BP more stable, cont Norvasc 10mg daily -Resume home metoprolol - Patient will need to follow up outpatient with PCP for adjustment of medications Diverticulitis, patient is tolerating PO -Recurrent episodes with most recent one being treated with p.o Flagyl and Cipro -CT of abd/pelvis 05/16 noted diverticulosis with mild acute diverticulitis, left renal cyst, arthrosclerosis. -stop IV Zosyn, transition to moxifloxacin PO for 5 days. -Afebrile, asymptomatic, PRN simethicone for gas complaints. DVT prophylaxis-SCDs, ambulation. 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
--- NOTE | 2018-05-19 12:43 | P.PNNP ---
Subjective Interval history: Awake and alert. Renal function is better. <Loretta Zavala - Last Filed: 05/19/18 12:40> Physical Exam Vital signs: Vital Signs 05/18/18 15:32 05/18/18 20:00 05/19/18 00:00 Temperature 98.1 F 98.6 F 98.3 F Pulse Rate 71 77 88 Respiratory Rate 20 18 20 Blood Pressure 159/86 H 153/86 H 172/84 H Pulse Oximetry 98 98 99 05/19/18 08:00 05/19/18 12:00 Temperature 98.3 F 98.0 F Pulse Rate 92 H 85 Respiratory Rate 16 16 Blood Pressure 167/86 H 169/95 H Pulse Oximetry 98 98 Intake & Output 05/18/18 05/19/18 05/19/18 18:59 06:59 18:59 Intake Total 1580 / 1580 100 / 100 240 / 240 Output Total 600 / 600 Balance 980 / 980 100 / 100 240 / 240 Weight 114 kg Intake: IV 1100 / 1100 100 / 100 Sodium Bicarbonate 8.4% Inj 75 1000 / 1000 MEQ In D5W Inj 925 ML @ 50 mls/ hr IV.CONT .Q20H STEFAN Rx#: [id number] Zosyn 2.25 GM Premix 50 ML @ 100 / 100 100 / 100 100 mls/hr IV.SIG Q6H STEFAN Rx#: [id number] Oral 480 / 480 240 / 240 Output: Urine 600 / 600 Other: # Voids 4 Date of Last Bowel Movement 05/18/18 05/18/18 05/18/18 # Bowel Movements 1 4 - Constitutional no acute distress, chronically ill appearing - Routine HEENT Exam Head: Present: normocephalic - Routine Neck Exam Present: supple, full ROM - Routine Respiratory Exam Present: CTA bilaterally. Absent: accessory muscle use - Routine Cardiovascular Exam Present: RRR, S1, S2 - Routine Abdominal Exam Present: soft, normoactive bowel sounds - Routine Extremities Exam Present: full ROM, normal capillary refill. Absent: edema - Routine Skin Exam Present: intact, dry, warm - Routine Neurological Exam Present: alert, oriented X3, CN II-XII intact - Detailed Neurological Exam: Coma Scale Eye Opening: Spontaneous Verbal Response: Oriented Motor Response: Obey commands Karin Coma Scale Total: 15 - Routine Psychiatric Exam Present: normal affect, normal thought process <Loretta Zavala - Last Filed: 05/19/18 12:40> Vital signs: Vital Signs 05/18/18 20:00 05/19/18 00:00 05/19/18 08:00 Temperature 98.6 F 98.3 F 98.3 F Pulse Rate 77 88 92 H Respiratory Rate 18 20 16 Blood Pressure 153/86 H 172/84 H 167/86 H Pulse Oximetry 98 99 98 05/19/18 12:00 05/19/18 16:00 Temperature 98.0 F 97.8 F Pulse Rate 85 88 Respiratory Rate 16 16 Blood Pressure 169/95 H 170/94 H Pulse Oximetry 98 99 Intake & Output 05/18/18 05/19/18 05/19/18 18:59 06:59 18:59 Intake Total 1580 / 1580 100 / 100 240 / 240 Output Total 600 / 600 Balance 980 / 980 100 / 100 240 / 240 Weight 114 kg Intake: IV 1100 / 1100 100 / 100 Sodium Bicarbonate 8.4% Inj 75 1000 / 1000 MEQ In D5W Inj 925 ML @ 50 mls/ hr IV.CONT .Q20H [facility]EFAN Rx#: [id number] Zosyn 2.25 GM Premix 50 ML @ 100 / 100 100 / 100 100 mls/hr IV.SIG Q6H STEFAN Rx#: [id number] Oral 480 / 480 240 / 240 Output: Urine 600 / 600 Other: # Voids 4 Date of Last Bowel Movement 05/18/18 05/18/18 05/18/18 # Bowel Movements 1 4 <Scott Horne - Last Filed: 05/19/18 16:56> Assessment and Plan - Assessment (1) Acute renal failure Code(s): N17.9 - Acute kidney failure, unspecified Status: Inactive Qualifiers: Acute renal failure type: unspecified Qualified Code(s): N17.9 - Acute kidney failure, unspecified Plan: In January his creatinine was 1. DAVID due to AIN from recent antibiotic use or possibly ATN due to dehydration. Renal function has been improving. He is non oliguric. Okay to stop IVF. Can be discharged from renal perspective, anticipate continued improvement. PO fluids encouraged. Avoid nephrotoxic agents including NSAIDs at home. (2) HTN (hypertension) Code(s): I10 - Essential (primary) hypertension Status: Acute Plan: On amlodipine. Hold NIXON inhibitor given renal failure. Okay to resume metoprolol. BP is better. (3) Diverticulitis Code(s): K57.92 - Diverticulitis of intestine, part unspecified, without perforation or abscess without bleeding Status: Acute Plan: On Zosyn and Avelox. <Loretta Zavala - Last Filed: 05/19/18 12:40> - Assessment (1) Acute renal failure Code(s): N17.9 - Acute kidney failure, unspecified Status: Inactive Qualifiers: Acute renal failure type: unspecified Qualified Code(s): N17.9 - Acute kidney failure, unspecified (2) HTN (hypertension) Code(s): I10 - Essential (primary) hypertension Status: Acute (3) Diverticulitis Code(s): K57.92 - Diverticulitis of intestine, part unspecified, without perforation or abscess without bleeding Status: Acute - Attending Attestation patient was seen and examined. Agree with above assessment and plan. Patient can be discharged from renal standpoint. <Scott Horne - Last Filed: 05/19/18 16:56>
[2018-05-19 21:10] VITALS: RESP 20
[2018-05-20 00:29] VITALS: BP 160/87; PULSE 70; TEMP 98; O2SAT 95
[2018-05-20 06:53] LABS: Calcium 8.7 mg/dL (8.5-10.1); Carbon Dioxide 26.4 meq/L (21.0-32.0); Potassium 4.3 meq/L (3.5-5.1)
[2018-05-20] MEDS: amLODIPine 5 MG Tablet PO SCH (09:40)
[2018-05-20] MEDS: Senna/Docusate Sodium 8.6/50 MG Tablet PO SCH (09:41)
--- NOTE | 2018-05-20 10:15 | P.DS ---
Date of admission: 05/16/18 03:41 Primary care physician: ROZINA SIMMONS Attending physician on discharge: Bossman Branch Anticipated date of discharge: 05/20/18 Brief History from admission: 63-year-old male with known history of hypertension, hyperlipidemia, recurrent diverticulitis, erectile dysfunction who presented the hospital because of right-sided flank pain. Patient states that he has been going outpatient management for diverticulitis by his biomedical doctor for approximately 1 week. He states he started developing worsening back pain and flank pain in which he talked 1 of his friends and they thought that it might be related to a kidney stone so he came to the emergency department for evaluation. Patient had workup done and found to have acute renal failure with creatinine 8.3. Patient is still making urine. Potassium was normal. No abnormalities in electrolytes. CT scan was done of the abdomen did not indicate any obstructive uropathy. Does indicate a left kidney 4 cm cyst. No etiology for the patient's acute renal failure. He has been on recent antibiotics include Cipro, Flagyl for diverticulitis. Patient states that he has never had any problems with his kidneys before. He states that the only thing new that he is using last 2 weeks is a new [id number] medication that was being promoted by Dr. Beckham and Clarence Patricia for erectile dysfunction. 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 Denies any urinary symptoms. He has had flank pain. Denies any edema, shortness of breath, dyspnea, chest pain. DS: Diagnosis - Discharge Diagnosis (1) DAVID (acute kidney injury) Status: Acute (2) Diverticulitis Status: Acute DS: Medications - Discharge Medications Prescriptions: amlodipine [Norvasc] 10 mg PO DAILY 30 Days #60 tab amoxicillin-pot clavulanate [Augmentin] 1 tab PO Q12H 4 Days #8 tab DS: Summary Hospital Course: 63-year-old male with PMH of HTN, HLD, ED, and recurrent diverticulitis with presented to hospital with right sided flank pane. Patient had reportedly recently started taking an OTC supplement for ED along with recent treatment for diverticulitis. Patient admitted due to ARF, transferred to [facility] for possible HD or renal biopsy. DAVID non-oliguric Unknown etiology ? OTC supplement -Nephrology has cleared for DC, continue oral hydration - Kidney US with no acute findings, no hydronephrosis, 3.3cm left renal cyst. - Continues to improve, creatinine 8.1 --->7.41-->5.93-->5.13 --> 4.41 -Mild hyperkalemia now resolved, IVF d/c -Continue low K diet, continue monitoring electrolytes and renal function -HD on hold for now -Encourage fluids HTN - ACEI on hold due to DAVID, started on Norvasc - BP more stable, cont Norvasc 10mg daily -Resume home metoprolol - Patient will need to follow up outpatient with PCP for adjustment of medications Diverticulitis, patient is tolerating PO -Recurrent episodes with most recent one being treated with p.o Flagyl and Cipro -CT of abd/pelvis 05/16 noted diverticulosis with mild acute diverticulitis, left renal cyst, arthrosclerosis. -stop IV Zosyn, transition to Augmentin PO for 5 days. -Afebrile, asymptomatic, PRN simethicone for gas complaints. DVT prophylaxis-SCDs, ambulation. Discussed Condition With: Patient and supervising physician Dr. Branch - Time Spent with Patient Total time spent providing and/or coordinating discharge services: Greater than 30 minutes - Quality: VTE Deep Vein Thrombosis/Pulmonary Embolism Present on Admission: No Exam Vital signs: Vital Signs 05/19/18 12:00 05/19/18 16:00 05/19/18 20:00 Temperature 98.0 F 97.8 F 98.6 F Pulse Rate 85 88 77 Respiratory Rate 16 16 20 Blood Pressure 169/95 H 170/94 H 160/90 H Pulse Oximetry 98 99 98 05/20/18 00:00 Temperature 98 F Pulse Rate 70 Respiratory Rate 20 Blood Pressure 160/87 H Pulse Oximetry 95 Intake & Output 05/19/18 05/20/18 05/20/18 18:59 06:59 18:59 Intake Total 290 / 290 800 / 800 800 / 800 Output Total 600 / 600 Balance 290 / 290 800 / 800 200 / 200 Intake: IV 50 / 50 Zosyn 2.25 GM Premix 50 ML @ 50 / 50 100 mls/hr IV.SIG Q6H STEFAN Rx#: [id number] Oral 240 / 240 800 / 800 800 / 800 Output: Urine 600 / 600 Other: # Voids 3 5 5 Date of Last Bowel Movement 05/18/18 05/19/18 05/19/18 # Bowel Movements 3 2 2 Narrative: GENERAL: This is a well-nourished, well-developed patient, who is worried about going home. CARDIOVASCULAR: Regular rate and rhythm RESPIRATORY: Clear to auscultation. Breath sounds equal bilaterally. GASTROINTESTINAL: Abdomen soft, minimally tender, nondistended. Normal active bowel sounds MUSCULOSKELETAL: Extremities without clubbing, cyanosis, or edema. NEURO: Alert & Oriented x4 to person, place, time, situation. Moves all ext x4 Results Procedures completed during hospitalization: none Labs on day of discharge: Labs from last 24 hours 05/20/18 05/17/18 05/17/18 05:37 04:42 04:42 Sodium 143 Potassium 4.3 Chloride 109 H Carbon Dioxide 26.4 Anion Gap 8 BUN 41 H Creatinine 4.41 H Estimated GFR 14 L Random Glucose 93 Calcium 8.7 PEP Pathologist Comment Double Strand DNA Ab Less than 12.3 - Impressions ITS Impressions Abdomen/Bladder Ultrasound 05/16/18 00:00 CONCLUSION: 1. No acute findings. No hydronephrosis. 3.3 cm left renal cyst. Discharge Plan - Discharge Disposition Patient Disposition: Discharge Home - Discharge Condition Condition: Stable - Discharge Order Discharge Orders: Discharge Order (Routine); Ordered 05/20/18 Ordered By: Mitra Aceves - Discharge Details Anticipated Discharge Date: 05/20/18 - Physicians Team Attending Provider: Bossman Branch Other Providers: Scott Horne MD - Rxs /Orders / Referrals /Forms Prescriptions: New amlodipine [Norvasc] 5 mg Tablet 10 mg PO DAILY 30 Days Qty: 60 RF: 0 amoxicillin-pot clavulanate [Augmentin] 875-125 mg Tablet 1 tab PO Q12H 4 Days Qty: 8 RF: 0 Continue metoprolol succinate 100 mg Tablet Extended Release 24 Hr 100 mg PO DAILY polyethylene glycol 3350 [Miralax] 17 gram Powder In Packet 17 g PO DAILY rabeprazole [Aciphex] 20 mg Tablet,Delayed Release (Dr/Ec) 20 mg PO DAILY Discontinued castor oil Oil 1,300 mg miscellaneous DAILY ciprofloxacin HCl [Cipro] 500 mg Tablet 500 mg PO Q12H gabapentin 300 mg Capsule 600 mg PO TID lisinopril 20 mg Tablet 20 mg PO DAILY lovastatin 40 mg Tablet 40 mg PO DAILY metronidazole [Flagyl] 500 mg Tablet 500 mg PO TID tadalafil [Cialis] 2.5 mg Tablet 2.5 mg PO DAILY Ambulatory Orders / Order Sets / DME: Basic Metabolic Panel (Routine) Timeframe: 3 Days Location: Determined by Patient Ordered By: Mitra Aceves Complete Blood Count with Diff (Routine) Timeframe: 3 Days Location: Determined by Patient Ordered By: Mitra Aceves Referrals: ROZINA SIMMONS [Other] - See Instructions (follow up in 1 week) Scott Horne MD [Physician] - See Instructions (follow up in 1 week)
== END 2018-05-20 10:54 | disposition home or self-care (01) ==
LOC: PHEDDLT 00:39 → PH3 03:41 → N06 14:44
PROVIDERS: ADMIT Internal Medicine; ATTEND Internal Medicine